=== PATIENT | female | born 1990 | race American Indian/Alaskan Native ===

== ENCOUNTER 2016-05-10 11:11 | Emergency (ER) | payer OTHER ==
[2016-05-10 11:35] VITALS: RESP 16; TEMP 98.4; O2SAT 98; BMI 24.9
--- NOTE | 2016-05-10 12:21 | ED PDOC ---
Arrival/HPI - General Chief Complaint: Cough, Cold, Congestion Time Seen by Provider: 05/10/16 11:39 Historian: Patient - History of Present Illness Narrative History of Present Illness (Text): 05/10/16 12:18 26yo female present with 6days history of greenish productive cough, nasal congestion, rhinorrhea, fever. States she had Tmax of101 yesterday. Took aleve last night. Denies sick contact, travel, sore throat, chest pain, SOB, any other complaint. Past Medical History - Provider Review Nursing Documentation Reviewed: Yes - Infectious Disease Hx of Infectious Diseases: None - Tetanus Immunization Tetanus Immunization: Unknown - Psychiatric Hx Depression: No Hx Emotional Abuse: No Hx Physical Abuse: No Hx Substance Use: No - Suicidal Assessment Feels Threatened In Home Enviroment: No Family/Social History - Physician Review Nursing Documentation Reviewed: Yes Family/Social History: Unknown Family HX Smoking Status: Never Smoked Hx Alcohol Use: No Hx Substance Use: No Hx Substance Use Treatment: No Allergies/Home Meds Allergies/Adverse Reactions: Allergies No Known Allergies Allergy (Verified 05/10/16 11:48) Review of Systems - Physician Review All systems were reviewed & negative as marked: Yes - Review of Systems Constitutional: Normal Eyes: Normal ENT: Rhinorrhea Respiratory: Cough, Sputum. absent: SOB, Wheezing Cardiovascular: Normal Gastrointestinal: Normal Genitourinary Female: Normal Musculoskeletal: Normal Skin: Normal Neurological: Normal Endocrine: Normal Hemo/Lymphatic: Normal Psychiatric: Normal Physical Exam Vital Signs Reviewed: Yes Vital Signs Temp Pulse Resp BP Pulse Ox 05/10/16 11:32 98.4 F 101 H 16 106/64 98 Temperature: Afebrile Blood Pressure: Normal Pulse: Regular Respiratory Rate: Normal Appearance: Positive for: Well-Appearing, Non-Toxic, Comfortable Pain Distress: None Mental Status: Positive for: Alert and Oriented X 3 - Systems Exam Head: Present: Atraumatic, Normocephalic Pupils: Present: PERRL Extroacular Muscles: Present: EOMI Conjunctiva: Present: Normal Mouth: Present: Moist Mucous Membranes Nose (Internal): Present: Engorged (Right nostril), Other (Tenderness over right sided maxillary area) Neck: Present: Normal Range of Motion Respiratory/Chest: Present: Clear to Auscultation, Good Air Exchange. No: Respiratory Distress, Accessory Muscle Use, Wheezes, Decreased Breath Sounds, Rales, Retracting, Rhonchi Cardiovascular: Present: Regular Rate and Rhythm, Normal S1, S2. No: Murmurs Abdomen: Present: Normal Bowel Sounds. No: Tenderness, Distention, Peritoneal Signs Back: Present: Normal Inspection Upper Extremity: Present: Normal Inspection. No: Cyanosis, Edema Lower Extremity: Present: Normal Inspection. No: Edema Neurological: Present: GCS=15, CN II-XII Intact, Speech Normal Skin: Present: Warm, Dry, Normal Color. No: Rashes Psychiatric: Present: Alert, Oriented x 3, Normal Insight, Normal Concentration Medical Decision Making ED Course and Treatment: 05/10/16 12:51 chest xray - No acute disease Zithromax given in ER. PT dc home with Zpack and antitussive. Referred to her PMD. TRT ER for any new or worsening symptoms - RAD Interpretation Radiology Orders: 05/10/16 11:48 CHEST TWO VIEWS (PA/LAT) [RAD] Stat Disposition/Present on Arrival - Present on Arrival Any Indicators Present on Arrival: No History of DVT/PE: No History of Uncontrolled Diabetes: No Urinary Catheter: No History of Decub. Ulcer: No History Surgical Site Infection Following: None - Disposition Have Diagnosis and Disposition been Completed?: Yes Diagnosis: URI (upper respiratory infection) Disposition: HOME/ ROUTINE Disposition Time: 12:55 Patient Plan: Discharge Condition: STABLE Discharge Instructions (ExitCare): Upper Respiratory Infection (ED) Additional Instructions: Take medication as directed Follow up with your Doctor Return to ER for any new or worsening symptoms Prescriptions: Promethazine [Phenergan Oral Syrup] 6.25 mg PO Q6 #100 dose Azithromycin [Zithromax] 250 mg PO DAILY #4 tab
[2016-05-10 12:59] VITALS: BP 107/63; PULSE 92
--- NOTE | 2016-05-10 12:59 | RAD ---
HISTORY: cough COMPARISON: No prior. TECHNIQUE: Chest PA and lateral FINDINGS: LUNGS: There is pulmonary hyperinflation and peribronchial cuffing with streaky opacities in both lungs. There is no focal consolidation. PLEURA: No significant pleural effusion identified. No pneumothorax apparent. CARDIOVASCULAR: Normal. OSSEOUS STRUCTURES: No significant abnormalities. VISUALIZED UPPER ABDOMEN: Normal. OTHER FINDINGS: None. IMPRESSION: Findings may represent reactive small airway disease/atypical/viral pneumonitis. No lobar pneumonia.
== END 2016-05-10 12:59 | disposition home or self-care (01) ==
LOC: ED 11:11
DX: J06.9 Acute upper respiratory infection, unspecified (principal)